=== PATIENT | female | born 1990 | race Caucasian/White ===

== ENCOUNTER 2022-07-09 14:48 | Emergency (ER) | payer OTHER, SELFPAY ==
[2022-07-09] MEDS ORDERED: Dexamethasone 10 MG/ML VIAL ONE (16:46)
== END 2022-07-09 16:45 | disposition home or self-care (01) ==
LOC: CSHERS 14:48
DX: J02.9 Acute pharyngitis, unspecified (principal); F17.210 Nicotine dependence, cigarettes, uncomplicated
CPT/HCPCS: 87081; 87430; 99284; J1100

== ENCOUNTER 2023-08-15 08:32 | Emergency (ER) | payer OTHER, SELFPAY | END 2023-08-15 09:49 | disposition home or self-care (01) | LOC: CSHERS 08:32 | DX: S60.362A Insect bite (nonvenomous) of left thumb, initial encounter (principal); W54.0XXA Bitten by dog, initial encounter; F17.210 Nicotine dependence, cigarettes, uncomplicated | CPT/HCPCS: 99282 ==

== ENCOUNTER 2024-04-11 14:43 | Emergency (ER) | payer SELFPAY ==
[~2024-04-11 14:43] MED LIST: Iopamidol 300 61% 100 ML VIAL FS ONE
[2024-04-11] MEDS ORDERED: Ketorolac Tromethamine 30 MG (1 mL) VIAL ONE (15:43)
[2024-04-11] MEDS ORDERED: Ondansetron PF 4 MG/2 ML Vial ONE (15:43)
[2024-04-11 16:20] LABS: Bilirubin Neg (Negative); Blood, Urine 25 (Negative); Clarity Clear (Clear); Glucose, Urine (Dipstick) Normal (Negative); Ketone, Urine Negative (Negative); Leukocyte Negative (Negative); Nitrite Negative (Negative); Protein, Urine (Dipstick) Negative (Neg-Trace); Urobilinogen Normal mg/dL (Less than 2)
[2024-04-11 16:29] LABS: #Basophils 0.06 10x3/uL (0.0-0.2); #Eosinphils 0.04 10x3/uL (0.0-0.5); #Monocytes 0.99 10x3/uL (0.0-1.1); #Neutrophils 15.52 10x3/uL (1.5-8.4); %Basophils 0.3 % (0.0-2.0); %Eosinophils 0.2 % (0.0-6.0); %Lymphocytes 10.1 % (18.0-47.0); %Monocytes 5.3 % (0.0-10.0); %Neutrophils 83.6 % (40.0-75.0); Hematocrit 42.4 % (34.9-44.5); Mean Corpuscular HGB CONC 35.4 g/dL (32.0-36.0); Mean Corpuscular Hemoglobin 31.2 pg (27.0-33.0); Mean Corpuscular Volume 88.1 fL (81.6-98.3); Mean Platelet Volume 9.5 fL (7.4-10.4); Platelet Count 428 10x3/uL (150-450); RBC Distribution Width 12.5 % (11.5-14.5); Red Blood Cell (RBC) Count 4.81 10x6/uL (3.90-5.03); White Blood Cell (WBC) Count 18.6 10x3/uL (3.5-10.5)
[2024-04-11 16:30] LABS: BHCG - Serum Negative (NEGATIVE); Pregs Control Background? CLEAR/WHITE (CLR/WHITE); Pregs Control Bar Appear? YES (CONTROL BAR)
[2024-04-11 16:39] LABS: ALT (SGPT) 23 U/L (8-55); AST (SGOT) 19 U/L (5-34); Alkaline Phosphatase 74 U/L (40-110); Anion Gap 14 mmol/L (10-20); BUN (Urea Nitrogen) 9 mg/dL (7.0-18.7); Bilirubin, Total 0.5 mg/dL (0.2-1.2); Calc. Creatinine Clearance 0 mL/min (70-130); Calcium 9.4 mg/dL (7.8-10.44); Carbon Dioxide 21 mmol/L (22-29); Chloride 107 mmol/L (98-107); Estimated GFR 101; Glucose 101 mg/dL (70-105); Lipase 12 U/L (8-78); Potassium 3.8 mmol/L (3.5-5.1); Sodium 138 mmol/L (136-145)
[2024-04-11 16:53] LABS: Bacteria/HPF 2+ HPF (None Seen); CAUTI Indications for Culture Pelvic or flank pain; RBC/HPF 0-3 HPF (0-3); Transitional Epithelial 0-3 HPF (None Seen); WBC/HPF 0-3 HPF (0-3)
[2024-04-11 16:54] LABS: Urine Culture Reflex No No
== END 2024-04-11 19:44 | disposition home or self-care (01) ==
LOC: CSHERS 14:43
DX: R10.31 Right lower quadrant pain (principal); F17.210 Nicotine dependence, cigarettes, uncomplicated
CPT/HCPCS: 74177; 76856; 80053; 81001; 83690; 84703; 85025; 96374; 96375; J1885; J2405; Q9967